=== PATIENT | male | born 1960 | race Caucasian/White ===

== ENCOUNTER 2020-05-15 15:39 | Emergency (ER) | payer SELFPAY ==
--- NOTE | ~2020-05-15 | XR_ITS ---
EXAMINATION: XR shoulder RT min 2V INDICATION: Right shoulder pain TECHNIQUE: Four views of the right shoulder are submitted. COMPARISON: None FINDINGS: Normal alignment. No fracture. There is moderate osteoarthritis at the acromioclavicular russ int. Mild osteoarthritis is present at the glenohumeral joint. Soft tissues are unremarkable. IMPRESSION: 1. Moderate osteoarthritis at the acromioclavicular joint without acute osseous abnormality. Reviewed, dictated and finalized at location A.
[2020-05-15 16:37] VITALS: BP 187/77; PULSE 75; RESP 18; TEMP 36.7; O2SAT 99
--- NOTE | 2020-05-15 19:53 | ED.UPPEXIN ---
HPI - Extremity Injury (Upper) General Chief Complaint: Extremity Injury, Upper Stated Complaint: shoulder injury Time Seen by Provider: 05/15/20 18:31 Source: patient Mode of arrival: ambulatory Limitations: language barrier (patient is slovenian speaking, did use retail area manager) History of Present Illness HPI narrative: Patient presents the emergency department for right shoulder pain for the last 9 days. No known injury or trauma. Reports he noted a rash soon after onset of pain. Denies fever. Related Data Allergies Allergy/AdvReac Type Severity Reaction Status Date / Time No Known Allergies Allergy Verified 05/15/20 15:40 Review of Systems Review of Systems: Narrative: CONSTITUTIONAL: Denies feve SKIN: Reports rash MUSCULOSKELETAL: Reports joint pain, and myalgia. NEUROLOGIC: Denies numbness, or weakness. All systems reviewed & are unremarkable except as noted in HPI and below PMFSH Past Medical History Medical History (Updated 05/15/20 @ 19:59 by Patrizia Ludwig PA-C) No active medical problems Social History Social History (Updated 05/15/20 @ 19:56 by Patrizia Ludwig PA-C) Substance use: never Gender identity (if verbalized by the patient): Male Exam Narrative: Exam Narrative: GENERAL: Well-appearing, well-nourished, and in no acute distress. HEAD: Normocephalic, atraumatic. EYES: EOMI. EXTREMITIES: Normal range of motion. No edema. SKIN: Warm, dry. Right shoulder with vesicular rash on erythematous base in dermatomal pattern. Some lesions have started to crust NEURO: No focal deficits. Alert and oriented x3. PSYCH: Normal mood and affect Course Vital Signs Vital signs: Vital Signs Temperature 98.1 F 05/15/20 16:37 Pulse Rate 75 05/15/20 16:37 Respiratory Rate 18 05/15/20 16:37 Blood Pressure 187/77 H 05/15/20 16:37 Pulse Oximetry 99 05/15/20 16:37 Temperature 98.1 F 05/15/20 16:37 Pulse Rate 75 05/15/20 16:37 Respiratory Rate 18 05/15/20 16:37 Blood Pressure 187/77 H 05/15/20 16:37 Pulse Oximetry 99 05/15/20 16:37 MDM - Extremity Injury (Upper) MDM Narrative Medical decision making narrative: Patient presents to the emergency department for right shoulder pain for 9 days. Reported a rash a couple of days after onset of pain. Shoulder x-ray ordered from triage which shows osteoarthritis, no acute findings. Patient's exam is consistent with shingles. It does look like there are some possible new lesions. I will put him on antiviral. Patient also will be getting some pain medication as needed for home. He will be given primary care doctor for follow-up. He was given warnings to return to the ER Imaging Data Radiologist's impression: ITS Impressions Shoulder X-Ray 05/15/20 18:25 IMPRESSION: 1. Moderate osteoarthritis at the acromioclavicular joint without acute osseous abnormality. Critical Care Time Critical Care Time Critical Care Time: No Discharge Plan Discharge Clinical Impression: Shingles Qualifiers: Herpes zoster complications: without complications Qualified Code(s): B02.9 - Zoster without complications Patient Disposition: Home, Self-Care Condition: Stable Instructions: Shingles (ED) Additional Instructions: Return to the emergency department if you experience fever, redness and swelling of your arm, or any other symptoms that are concerning to you Take valacyclovir as prescribed. [id number] pain medication as needed. Prescribed pain medication as needed Follow-up with primary care doctor Prescriptions: New valacyclovir 1 gram tablet 1,000 mg PO TID 7 Days Qty: 21 RF: 0 hydrocodone-acetaminophen 5-325 mg tablet 1 tablet PO Q6H PRN (Reason: pain) Qty: 20 RF: 0 Follow-up/Referrals: Zoltan Kaminski MD [Physician] - 1 Week PHYSICIAN,ACCOUNTS RECEIVABLE ASSOCIATE [Primary Care Provider] -
[2020-05-15 20:20] VITALS: BP 169/78; PULSE 71; RESP 16; TEMP 36.6; O2SAT 100
== END 2020-05-15 20:22 | disposition home or self-care (01) ==
PROVIDERS: Emergency Provider Emergency Medicine
DX: B02.9 Zoster without complications (principal)
CPT/HCPCS: 73030; 99283